=== PATIENT | male | born 1950 | race Asian ===

== ENCOUNTER 2020-01-30 07:52 | Emergency (ER) | payer OTHER ==
[~2020-01-30] VITALS: Ht 165.1 cm; Wt 65.5 kg
[2020-01-30] MEDS ORDERED: LISI-662 PO (08:00)
[2020-01-30] MEDS ORDERED: CEPH-582 PO (08:00)
[2020-01-30 08:15] VITALS: BP 157/83
[2020-01-30] MEDS ORDERED: LIDOCAINE 1% 10 ML VIAL INJ ONE (08:30)
[2020-01-30] MEDS ORDERED: BACITRACIN 0.9 GM PACKET OINTMENT TP ONE (08:30)
[2020-01-30] MEDS ORDERED: DOXYCYCLINE HYCLATE 100 MG CAPSULE PO ONE (08:45)
== END 2020-01-30 09:04 | disposition home or self-care (01) ==
LOC: EMS 07:56
DX: L02.414 Cutaneous abscess of left upper limb (principal); I10 Essential (primary) hypertension; Z79.899 Other long term (current) drug therapy
CPT/HCPCS: 10060; 99283; J3490

== ENCOUNTER 2020-04-10 17:49 | Emergency (ER) | payer OTHER ==
[~2020-04-10] VITALS: Ht 167.6 cm; Wt 63.6 kg
[~2020-04-10 17:49] MED LIST: CEPH-582 PO; LISI-662 PO
[2020-04-10 19:12] LABS: BASOPHILS % (AUTO) 0.3 % (0.0-2.0); EOSINOPHILS % (AUTO) 4.1 % (1.0-6.0); HEMATOCRIT 42.3 % (41-53); HEMOGLOBIN 13.9 g/dL (13.5-17.5); LYMPHOCYTES # (AUTO) 1.9 K/uL (1.0-4.8); LYMPHOCYTES % (AUTO) 29.8 % (22.0-44.0); MEAN CORPUSCULAR HGB CONC 32.9 G/dL (31.0-37.0); MEAN CORPUSCULAR VOLUME 103 fL (80-100); MONOCYTES # (AUTO) 0.7 K/uL (0.1-1.0); MONOCYTES % (AUTO) 11.5 % (2.0-9.0); NEUTROPHILS # (AUTO) 3.5 K/uL (1.8-7.7); NEUTROPHILS % (AUTO) 54.3 % (40.0-70.0); PLATELET COUNT (AUTO) 217 K/uL (150-450); RED BLOOD CELL COUNT(AUTO) 4.09 MIL/uL (4.50-5.90); RED CELL DISTRIBUTION WIDTH 13.1 % (11.5-14.5)
[2020-04-10 19:25] LABS: INR 1.1 (0.9-1.1); PROTHROMBIN TIME 10.8 SEC (9.4-11.6)
[2020-04-10 19:28] LABS: LACTIC ACID 1.8 mmol/L (0.4-2.0)
[2020-04-10 19:51] LABS: ANION GAP 12 mmol/L (8-16); CALCIUM, TOTAL 8.9 mg/dL (8.8-10.5); CARBON DIOXIDE 24 mmol/L (22-29); CHLORIDE 103 mmol/L (98-107); CREATININE 1.17 mg/dL (0.60-1.30); GLOMERULAR FILTR. RATE CALC > 60 mL/min (>60); GLUCOSE,RANDOM 117 mg/dL (70-110); POTASSIUM 3.2 mmol/L (3.5-5.1); SODIUM SERUM 139 mmol/L (136-145); UREA NITROGEN, BLOOD 12 mg/dL (7-18)
[2020-04-10] MEDS ORDERED: SODIUM CHLORIDE 0.9% 100 ML ONE (19:56)
[2020-04-10] MEDS ORDERED: IOVERSOL 320 MG/ML 100 ML VIAL ONE (19:56)
[2020-04-10 19:58] LABS: ALANINE AMINOTRANSFERASE 31 U/L (12-78); ALBUMIN 4.1 g/dL (3.4-5.0); ALKALINE PHOSPHATASE 69 U/L (46-116); ASPARTATE AMINOTRANSFERASE 23 U/L (15-37); BILIRUBIN,TOTAL 0.4 mg/dL (0.1-1.0); TOTAL PROTEIN, SERUM 8.1 g/dL (6.4-8.2)
[2020-04-10] MEDS ORDERED: POTASSIUM CHLORIDE 20 MEQ ER TABLET PO ONE (20:00)
[2020-04-10 20:23] LABS: APPEARANCE,URINE CLEAR (CLEAR); BILIRUBIN,URINE NEGATIVE (NEGATIVE); GLUCOSE, URINE (UA) NEGATIVE (NEGATIVE); KETONES,URINE NEGATIVE (NEGATIVE); LEUKOCYTE ESTERASE ,URINE NEGATIVE (NEGATIVE); NITRATE,URINE NEGATIVE (NEGATIVE); OCCULT BLOOD,URINE LARGE (NEGATIVE); PROTEIN,URINE NEGATIVE (NEGATIVE); UROBILINOGEN,URINE 0.2 mg/dL (<=1.0)
[2020-04-10 20:39] LABS: BACTERIA,URINE None Seen /HPF (None Seen); SQUAMOUS EPITHELIAL CELL,UR None Seen /LPF (None Seen); WBC,URINE 0-2 /HPF (0-5)
[2020-04-11 00:05] VITALS: BP 126/71
== END 2020-04-11 01:13 | disposition home or self-care (01) ==
LOC: EMS 17:49
DX: N32.3 Diverticulum of bladder (principal); N40.0 Benign prostatic hyperplasia without lower urinary tract symptoms; E87.6 Hypokalemia; N32.89 Other specified disorders of bladder; I10 Essential (primary) hypertension; Z79.899 Other long term (current) drug therapy
CPT/HCPCS: 36415; 51702; 74177; 76770; 80053; 81001; 83605; 85025; 85610; 85730; 99285; J7050; Q9967

== ENCOUNTER 2020-04-11 10:27 | Emergency (ER) | payer OTHER ==
[~2020-04-11] VITALS: Ht 162.6 cm; Wt 54.5 kg
[~2020-04-11 10:27] MED LIST changes: -CEPH-582 PO
[2020-04-11 14:10] LABS: APPEARANCE,URINE CLOUDY (CLEAR); GLUCOSE, URINE (UA) NEGATIVE (NEGATIVE); KETONES,URINE TRACE mg/dL (NEGATIVE); LEUKOCYTE ESTERASE ,URINE SMALL (NEGATIVE); NITRATE,URINE NEGATIVE (NEGATIVE); OCCULT BLOOD,URINE LARGE (NEGATIVE); PROTEIN,URINE POS 1+ (NEGATIVE)
[2020-04-11 14:12] LABS: BILIRUBIN,URINE PRELIM. POSITIVE (NEGATIVE)
[2020-04-11 14:21] LABS: BACTERIA,URINE Few /HPF (None Seen); RBC,URINE Full Field /HPF (0-2)
[2020-04-11 14:57] VITALS: BP 131/71
== END 2020-04-11 15:06 | disposition home or self-care (01) ==
LOC: EMS 10:30
DX: N39.0 Urinary tract infection, site not specified (principal); I10 Essential (primary) hypertension; Z79.899 Other long term (current) drug therapy